=== PATIENT | male | born 1975 | race Caucasian/White ===

== ENCOUNTER 2019-02-13 13:08 | Outpatient (CLI) | payer OTHER ==
--- NOTE | 2019-02-14 10:51 | MRI Report ---
Reason: ENCTR FOR SCREENING, UNSPECIFIED Procedure Date: 02/13/2019 Accession Number: [id number] / [id number] Procedure: MRI - Abdomen W/WO CPT Code: FULL RESULT: EXAM: MR ABDOMEN WITH AND WITHOUT CONTRAST EXAM DATE: 02/13/2019 04:22 PM. CLINICAL HISTORY: Strong history of renal cell carcinoma. Urinalysis is negative for hematuria. COMPARISON: None. TECHNIQUE: Multiplanar breath-hold T1, T2, and DWI sequences obtained through the pancreas and abdomen on an MR scanner. Dedicated images obtained before and after administration of 7.5 mL Gadavist intravenous contrast. Multiphase postcontrast sequences obtained through the kidneys. FINDINGS: Lung Bases: Unremarkable. Liver: The liver has normal size, morphology and signal. No evidence of mass. Gallbladder: The gallbladder is partially distended and appears normal with no wall thickening or stone. Bile Ducts: No intrahepatic or extrahepatic duct dilatation. Pancreas: The pancreas appears normal with no mass. The pancreatic duct measures 1.8 mm in diameter and appears normal with no stone or stricture. Spleen: The spleen appears normal. Kidneys: The right kidney contains a simple 0.7 cm cyst in the anterior mid pole and another 0.7 cm simple cyst in the anterior upper pole, benign. The left kidney contains a 0.7 cm cyst in the anterior midpole as well as a sub-3 mm cyst in the lower midpole, benign. No suspicious lesions are identified in either kidney. Adrenals: The adrenals appear normal. Bowel: The visualized segments of the small bowel and colon appear normal with no inflammation or obstruction. Retroperitoneum: The retroperitoneal structures appear normal with no mass or lymphadenopathy. Other: None. IMPRESSION: Benign renal cysts measuring up to 0.7 cm with no suspicious renal lesions. RADIA
== END 2019-02-13 13:09 | disposition home or self-care (01) ==
LOC: DI 13:08
DX: Z13.9 Encounter for screening, unspecified (principal); Q61.02 Congenital multiple renal cysts
CPT/HCPCS: 74183; A9585

== ENCOUNTER 2020-12-16 09:47 | Outpatient (CLI) | payer OTHER | END 2020-12-16 09:48 | disposition home or self-care (01) | LOC: LAB 09:47 | PROVIDERS: ATTEND Nurse Practitioner Obstetrics & Gynecology | DX: Z13.228 Encounter for screening for other metabolic disorders (principal); Z84.89 Family history of other specified conditions | CPT/HCPCS: 36415; 81220 ==

== ENCOUNTER 2021-02-24 14:09 | Emergency (ER) | payer OTHER ==
[2021-02-24 14:52] LABS: BASOPHILS # (AUTO) 0.1 10^3/uL (0.0-0.1); BASOPHILS % (AUTO) 0.8 %; EOSINOPHILS # (AUTO) 0.3 10^3/uL (0.0-0.7); EOSINOPHILS % (AUTO) 3.6 %; HCT - HEMATOCRIT 48.4 % (42.0-52.0); HGB - HEMOGLOBIN 16.1 g/dL (14.0-18.0); LYMPHOCYTES # (AUTO) 2.1 10^3/uL (1.5-3.5); MEAN CORPUSCULAR HEMOGLOBIN 29.7 pg (27.0-31.0); MEAN CORPUSCULAR HGB CONC 33.3 g/dL (32.0-36.0); MEAN CORPUSCULAR VOLUME 89.3 fL (80.0-94.0); MEAN PLATELET VOLUME 10.3 fL (7.4-11.4); MONOCYTES # (AUTO) 0.6 10^3/uL (0.0-1.0); NEUTROPHILS # (AUTO) 4.5 10^3/uL (1.5-6.6); NEUTROPHILS % (AUTO) 59.3 %; PLT - PLATELET COUNT 251 10^3/uL (130-450); RED BLOOD COUNT 5.42 10^6/uL (4.70-6.10); RED CELL DISTRIBUTION WIDTH 12.8 % (12.0-15.0); WHITE BLOOD COUNT 7.5 x10^3/uL (4.8-10.8)
[2021-02-24] MEDS ORDERED: SODIUM CHLORIDE 0.9% 1,000 ML IV STA (14:56)
--- NOTE | 2021-02-24 14:59 | ED Physician Documentation ---
History of Present Illness - Stated complaint Stated Complaint: BACK PX - Chief complaint Chief Complaint: Abd Pain - Additonal information Additional information: 45-year-old male presents to the emergency department for evaluation of 3 days left flank pain. He reports that it began mildly but over the last 48 hours increased in intensity until reaching its peak yesterday evening. He reports the pain is sharp and radiating to his left testy. He denies hematuria dysuria urgency or frequency. No history of similar. He does report that his dad and brother have a history of kidney stones. Past medical history unremarkable with exception of GERD for which she takes pantoprazole. No pertinent past surgical history of the abdomen. Review of Systems Constitutional: denies: Fever Eyes: reports: Reviewed and negative Ears: reports: Reviewed and negative Nose: reports: Reviewed and negative Cardiac: reports: Reviewed and negative Respiratory: reports: Reviewed and negative GI: reports: Abdominal Pain. denies: Nausea, Vomiting, Constipation, Diarrhea : reports: Testicular pain (left testicle). denies: Dysuria, Frequency, Hesitancy Skin: reports: Reviewed and negative Musculoskeletal: reports: Reviewed and negative PD PAST MEDICAL HISTORY - Present Medications Home Medications: Ambulatory Orders Medication Instructions Recorded Confirmed HYDROcod/ACETAM 5/325 [Orient 5/325] 1 - 2 tablet PO BID PRN #5 tablet 02/24/21 Ibuprofen [Motrin] 600 mg PO Q6H PRN #30 tab 02/24/21 Pantoprazole [Protonix] 40 mg PO DAILY 02/24/21 02/24/21 - Allergies Allergies/Adverse Reactions: Allergies Allergy/AdvReac Type Severity Reaction Status Date / Time No Known Drug Allergies Allergy Verified 02/24/21 14:34 PD ED PE NORMAL - General General: Alert and oriented X 3, No acute distress - Neck Neck: Supple, no meningeal sign - Cardiac Cardiac: RRR, No murmur - Respiratory Respiratory: Clear bilaterally - Abdomen Abdomen: Normal bowel sounds, Soft, Non distended, Other (No CVA tenderness elicited. mild flank pain only with deep palpation left lower side). No: Non tender - Male Male : Other (Cremasteric positive bilaterally. No testicular swelling or erythema. No scrotal swelling or edema.) - Back Back: No CVA TTP - Extremities Extremities: No deformity - Neuro Neuro: Alert and oriented X 3 Eye Opening: Spontaneous Motor: Obeys Commands Verbal: Oriented GCS Score: 15 Results - Vitals Vitals: Vital Signs - 24 hr 02/24/21 14:27 Temperature 36.6 C Heart Rate 83 Respiratory 16 Rate Blood Pressure 141/92 H O2 Saturation 99 Oxygen O2 Source Room air - Labs Labs: Laboratory Tests 02/24/21 02/24/21 02/24/21 14:44 14:44 16:12 WBC 7.5 RBC 5.42 Hgb 16.1 Hct 48.4 MCV 89.3 MCH 29.7 MCHC 33.3 RDW 12.8 Plt Count 251 MPV 10.3 Neut # (Auto) 4.5 Lymph # (Auto) 2.1 [place] # (Auto) 0.6 Eos # (Auto) 0.3 Baso # (Auto) 0.1 Absolute Nucleated RBC 0.00 Nucleated RBC % 0.0 Sodium 137 Potassium 4.2 Chloride 98 L Carbon Dioxide 28 Anion Gap 11.0 BUN 15 Creatinine 1.0 Estimated GFR (MDRD) 80 L Glucose 106 H Calcium 9.6 Total Bilirubin 0.7 AST 23 ALT 34 Alkaline Phosphatase 81 Total Protein 8.5 H Albumin 4.7 Globulin 3.8 Albumin/Globulin Ratio 1.2 Lipase 24 Urine Color YELLOW Urine Clarity CLEAR Urine pH 6.0 Ur Specific [place] 1.015 Urine Protein NEGATIVE Urine Glucose (UA) NEGATIVE Urine Ketones NEGATIVE Urine Occult Blood NEGATIVE Urine Nitrite NEGATIVE Urine Bilirubin NEGATIVE Urine Urobilinogen 0.2 (NORMAL) Ur Leukocyte Esterase NEGATIVE Ur Microscopic Review NOT INDICATED Urine Culture Comments NOT INDICATED - Rads (name of study) CT abd Radiology: Final report received (And kidney stone demonstrated. No hydronephrosis. Nonobstructing right kidney stone. Diverticulosis no diverticulitis.) PD MEDICAL DECISION MAKING - ED course Complexity details: reviewed results, re-evaluated patient, d/w patient ED course: Show no [id number] male presents the emergency department with 3 days of left flank pain that radiates to his testes. No fevers or vomiting. Denies hematuria. Abnormalities. Urine is not consistent with infection and there is no hematuria. A CT scan demonstrates a right nonobstructing kidney stone but no obvious stones or ureter stones on the left side. Findings were discussed with the patient. Given the presence of the stone in the right kidney it is possible that the left flank pain he was aches very and seeing may have been passing of a ureter stone. Though less likely he could also have musculoskeletal pain. I do recommend this gentleman take ibuprofen with food 3 times a day. Given the pain on exam I will prescribe a very small amount of hydrocodone for relief at home. Emergent return precautions were discussed. I am prescribing a short course of short-acting opioid pain medication for this patient. I have reviewed the patients [employer] and no concerning findings were noted. I have discussed that the opioids are for short term therapy only, and will not be refilled from the ED. Departure - Departure Disposition: 01 Home, Self Care Clinical Impression: Left flank pain, Right kidney stone, Diverticulosis Condition: Stable Record reviewed to determine appropriate education?: Yes Follow-Up: SHARON EUBANKS MD [Primary Care Provider] - Prescriptions: Ibuprofen [Motrin] 600 mg PO Q6H PRN #30 tab PRN Reason: Pain HYDROcod/ACETAM 5/325 [Orient 5/325] 1 - 2 tablet PO BID PRN #5 tablet PRN Reason: Pain Comments: Gene please discuss this ED visit with your primary care doctor. You were seen today for left flank pain. The history is quite suspicious for a left ureter stone however the CT scan did not find any stones on your left side. You do have a small nonobstructing stone in your right kidney. Stones in the kidney do not cause pain. They only become painful when they move the ureter. Please take the ibuprofen as prescribed with food 2-3 times a day for discomfort. Of also prescribed a limited amount of hydrocodone. Your screening labs and urine are also essentially unremarkable. Please return to the ER for fevers, suddenly severe or different pain, uncontrolled vomiting. I am prescribing a short course of narcotic pain medication for you. These are potentially dangerous and addictive medications that should be used carefully. These medications may constipate you. Take an byuu-ueb-ywmanfq stool softener (docusate) twice daily with plenty of water while taking these medications. If you go 24 hours without a bowel movement, take [id number] miralax, per package instructions. Do not drink or drive while taking these medications. If you received narcotic or sedating medications while in the emergency department, do not drive for 24 hours. Store this medication in a safe, secure place and out of reach of children. It is a violation of federal law to give or sell this medication to another person or to use in a manner other than prescribed. The ED will not refill narcotic prescriptions, including prescriptions lost or stolen. To dispose of unwanted medications: 1. [facility] at [address] in [place] has a medication drop box. They accept prescription medications (in pill form) Sunday through Sunday 9:00 a.m. to 5:00 p.m. 2. The [facility] accepts prescription medications (in pill form only) for disposal year round. Call for more information. 3. Contact the [facility] for the next [facility] sponsored prescription drug collection event. , [phone], or [phone]; Note that many narcotic pain relievers also contain Tylenol/acetaminophen. Please ensure that your total dose of acetaminophen from all sources does not exceed 3 g (3000 mg) per day.
[2021-02-24] MEDS ORDERED: KETOROLAC 30 MG/ML VIAL IVP STA (15:00)
[2021-02-24] MEDS ORDERED: IOVERSOL 320 100 ML VIAL IVP ONE ×2 (15:00→16:48)
[2021-02-24 15:03] LABS: ALBUMIN 4.7 g/dL (3.2-5.5); ALBUMIN/GLOBULIN RATIO 1.2 (1.0-2.2); BILIRUBIN,TOTAL 0.7 mg/dL (0.2-1.0); CALCIUM 9.6 mg/dL (8.5-10.3); POTASSIUM 4.2 mmol/L (3.5-5.0); TOTAL PROTEIN 8.5 g/dL (6.7-8.2)
[2021-02-24 16:24] LABS: BILIRUBIN,URINE NEGATIVE (NEGATIVE); GLUCOSE, URINE (UA) NEGATIVE (NEGATIVE); KETONES,URINE (UA) NEGATIVE (NEGATIVE); LEUKOCYTE ESTERASE, URINE NEGATIVE (NEGATIVE); NITRITE,URINE NEGATIVE (NEGATIVE); OCCULT BLOOD,URINE NEGATIVE (NEGATIVE); PROTEIN,URINE NEGATIVE (NEGATIVE); UROBILINOGEN,URINE 0.2 (NORMAL) E.U./dL (NORMAL)
[2021-02-24 16:26] LABS: CLARITY,URINE CLEAR (CLEAR)
--- NOTE | 2021-02-24 16:43 | CT Report ---
PROCEDURE: Abdomen/Pelvis W INDICATIONS: left flank pain radiating to tested. ? stone CONTRAST: IV CONTRAST: Optiray 320 ml: 100 PO CONTRAST: *NO PO CONTRAST TECHNIQUE: After the administration of intravenous contrast, 5 mm thick sections acquired from the diaphragms to the symphysis. 5 mm thick coronal and sagittal reformats were acquired. For radiation dose reducti on, the following was used: automated exposure control, adjustment of mA and/or kV according to kiel ent size. COMPARISON: MRI abdomen 02/13/2019. FINDINGS: Image quality: Excellent. ABDOMEN: Lung bases: Lung bases are clear. Heart size is normal. Solid organs: Liver and spleen are normal in size and enhancement. Calcified splenic granulomas. Ga llbladder is unremarkable. Biliary system is non dilated. Pancreas enhances normally. No adrenal n odules. Kidneys demonstrate normal size and enhancement, without hydronephrosis. Nonobstructing calc ulus in the mid right kidney measuring 0.3 cm. Peritoneum and bowel: Bowel loops demonstrate normal wall thickness and caliber. Diverticulosis. Nor mal appendix. No free fluid or air. Nodes and vessels: No retroperitoneal or mesenteric adenopathy by size criteria. Aorta and inferior vena cava are normal in size. Miscellaneous: Small fat-containing periumbilical hernia. PELVIS: Genitourinary: Bladder wall thickness is normal. Calcification at the lateral right penis. Miscellaneous: No inguinal hernias or adenopathy. Bones: No suspicious bony lesions. No vertebral body compression fractures. IMPRESSION: 1. No obstructing kidney stone demonstrated. No hydronephrosis. 2. Nonobstructing right kidney stone. 3. Diverticulosis. No diverticulitis. If clinically indicated consider scrotal ultrasound. Reviewed by: Dhiraj Montague MD on 02/24/2021 4:42 PM PDT Approved by: Dhiraj Montague MD on 02/24/2021 4:42 PM PDT Station ID: [id number]
[2021-02-24 17:07] VITALS: BP 138/93
== END 2021-02-24 17:22 | disposition home or self-care (01) ==
LOC: ED 14:09
DX: R10.9 Unspecified abdominal pain (principal); N50.812 Left testicular pain; N20.0 Calculus of kidney; K57.90 Diverticulosis of intestine, part unspecified, without perforation or abscess without bleeding; K21.9 Gastro-esophageal reflux disease without esophagitis
CPT/HCPCS: 36415; 74177; 80053; 81003; 83690; 85025; 96374; 99284; Q9967; 81001; 87086

== ENCOUNTER 2021-07-05 13:52 | Outpatient (CLI) | payer OTHER | END 2021-07-05 13:53 | disposition home or self-care (01) | LOC: LAB 13:52 | PROVIDERS: ATTEND Urology | DX: Z30.2 Encounter for sterilization (principal) | CPT/HCPCS: 81599; 89321 ==